=== PATIENT | female | born 2000 | race Caucasian/White ===

== ENCOUNTER 2022-01-11 20:08 | Emergency (ER) | payer OTHER, BC ==
[~2022-01-11] VITALS: Ht 165.1 cm; Wt 54.5 kg
[2022-01-11 20:12] VITALS: TEMP 98.1
[2022-01-11 21:01] VITALS: BP 115/71; PULSE 75
== END 2022-01-11 21:04 | disposition home or self-care (01) ==
LOC: COL.ER 20:08
DX: S05.02XA Injury of conjunctiva and corneal abrasion without foreign body, left eye, initial encounter (principal); X58.XXXA Exposure to other specified factors, initial encounter

== ENCOUNTER 2024-02-03 01:07 | Emergency (ER) | payer BC ==
[~2024-02-03] VITALS: Ht 165.1 cm; Wt 56.8 kg
[2024-02-03] MEDS ORDERED: Acetaminophen 325 MG TAB PO ONE (01:30)
[2024-02-03] MEDS ORDERED: Ibuprofen 400 MG TAB PO ONE (01:30)
[2024-02-03] MEDS ORDERED: Cyclobenzaprine 10 MG TAB PO ONE (01:30)
[2024-02-03 02:37] LABS: BASO % 0.6 % (0.0-2.0); EOS # 0.1 K/mm3 (0.0-0.7); EOS % 1.9 % (0.0-4.0); GRAN # 2.7 K/mm3 (1.4-6.5); GRAN % 42.3 % (42.2-75.2); HEMATOCRIT 42.5 % (37.0-47.0); HEMOGLOBIN 13.8 g/dl (12.5-16.0); LYMPH # 2.8 K/mm3 (1.2-3.4); LYMPH % 44.4 % (20.0-51.0); MEAN CELL VOLUME 85 fl (80.0-100.0); MEAN CORPUSCULAR HEMOGLOBIN 28 pg (27-31); MEAN CORPUSCULAR HGB CONC 33 g/dl (33.0-37.0); MEAN PLATELET VOLUME 9.7 fl (7.4-10.4); MONO # 0.7 K/mm3 (0.1-0.6); MONO % 10.6 % (1.7-9.3); PLATELET COUNT 297 K/mm3 (130-400); RED BLOOD COUNT 4.98 M/mm3 (4.10-5.30); REDCELL DISTRIBUTION WIDTH-CV 14.6 % (11.5-14.5)
[2024-02-03] MEDS ORDERED: FLEXERIL 1010 MG/TAB PO (02:54)
[2024-02-03 03:29] VITALS: BP 100/65; PULSE 83; TEMP 98.5
== END 2024-02-03 03:29 | disposition home or self-care (01) ==
LOC: COL.ER 01:07
PROVIDERS: Nurse Practitioner Primary Care
DX: M25.512 Pain in left shoulder (principal)